=== PATIENT | female | born 1995 | race Caucasian/White ===

== ENCOUNTER 2022-10-29 10:34 | Emergency (ER) | payer MEDICAID ==
[~2022-10-29] VITALS: Ht 167.6 cm; Wt 73.0 kg
[2022-10-29] MEDS ORDERED: KETOROLAC 60MG/2ML VIAL IM STA (11:11)
[2022-10-29] MEDS ORDERED: CYCL5TAB MT (13:16)
[2022-10-29] MEDS ORDERED: NAPR-681 PO (13:16)
[2022-10-29 13:42] VITALS: BP 128/75
== END 2022-10-29 13:46 | disposition home or self-care (01) ==
LOC: ER 10:34
DX: M25.511 Pain in right shoulder (principal); M25.551 Pain in right hip; R07.89 Other chest pain; G89.29 Other chronic pain; M54.50 Low back pain, unspecified; V43.52XA Car driver injured in collision with other type car in traffic accident, initial encounter; Y93.89 Activity, other specified; Y92.488 Other paved roadways as the place of occurrence of the external cause; Y99.8 Other external cause status
CPT/HCPCS: 71045; 72100; 73030; 73502; 81025; 96372; 99284; J1885; Z7610